=== PATIENT | female | born 1985 | race Caucasian/White ===

== ENCOUNTER 2016-09-08 12:34 | Emergency (ER) | payer OTHER | END 2016-09-08 15:35 | disposition home or self-care (01) | LOC: D.ER 12:34 | DX: J03.90 Acute tonsillitis, unspecified (principal); M35.9 Systemic involvement of connective tissue, unspecified; J45.909 Unspecified asthma, uncomplicated; F90.9 Attention-deficit hyperactivity disorder, unspecified type ==

== ENCOUNTER 2017-01-05 11:55 | Emergency (ER) | payer OTHER ==
[2017-01-05 13:15] LABS: BASOPHILS 0.2 % (0-2); EOSINOPHILS 0.4 % (0-7); HEMOGLOBIN 13.8 g/dL (12-16); IMMATURE GRANULOCYTES 0.2 % (0-5); MCH 28.9 pg (26.0-34.0); MCHC 34.5 g/dL (31.0-37.0); MCV 83.9 fL (80.0-100.0); MEAN PLATELET VOLUME 9.4 fL (7.4-10.4); MONOCYTES 6.2 % (2-11); PLATELET COUNT 258 10x3/uL (130-400); RBC 4.77 10x6/uL (4.00-5.40); RDW 12.6 % (11.5-14.5)
[2017-01-05 13:34] LABS: ALBUMIN 3.6 g/dL (3.4-5.0); ALKALINE PHOSPHATASE 109 U/L (46-116); ALT (SGPT) 27 U/L (10-68); BILIRUBIN - TOTAL 0.34 mg/dL (0.2-1.3); CALC OSMOLALITY 273 mosm/kg (275-300); CALCIUM 8.7 mg/dL (8.5-10.1); CARBON DIOXIDE 27.7 mmol/L (21.0-32.0); CHLORIDE - SERUM 102 mmol/L (98-107); CREATININE - SERUM 0.6 mg/dL (0.6-1.3); GLUCOSE 92 mg/dL (74-106); POTASSIUM - SERUM 4.3 mmol/L (3.5-5.1); PROTEIN - SERUM 7.6 g/dL (6.4-8.2); SODIUM 139 mmol/L (136-145); UREA NITROGEN 2 mg/dL (7-18); eGFR NON AFRICAN AMERICAN > 90 mL/min (90-120)
== END 2017-01-05 14:57 | disposition home or self-care (01) ==
LOC: D.ER 11:55
PROVIDERS: Family Medicine
DX: J20.9 Acute bronchitis, unspecified (principal); J45.901 Unspecified asthma with (acute) exacerbation; F90.9 Attention-deficit hyperactivity disorder, unspecified type; M35.9 Systemic involvement of connective tissue, unspecified

== ENCOUNTER 2018-01-22 18:17 | Emergency (ER) | payer SELFPAY ==
[~2018-01-22] VITALS: Ht 149.9 cm; Wt 84.1 kg
[2018-01-22 18:30] VITALS: Ht 149.9 cm; Wt 84.1 kg
[2018-01-22] MEDS ORDERED: NORCO 5/325 TAB1 TAB PO (21:05)
[2018-01-22 21:54] VITALS: BP 114/76
== END 2018-01-22 21:55 | disposition home or self-care (01) ==
LOC: D.ER 18:17
DX: S93.402A Sprain of unspecified ligament of left ankle, initial encounter (principal); W13.3XXA Fall through floor, initial encounter; Y93.89 Activity, other specified; Y92.019 Unspecified place in single-family (private) house as the place of occurrence of the external cause; F17.200 Nicotine dependence, unspecified, uncomplicated